=== PATIENT | female | born 1940 | race Asian ===

== ENCOUNTER 2021-10-10 09:08 | Emergency (ER) | payer MEDICARE, OTHER ==
[2021-10-10 09:27] VITALS: BP 136/85; PULSE 71
[2021-10-10] MEDS: Ketorolac 30 MG/ML SDV IM ONE (09:36)
[2021-10-10] MEDS: Ketorolac 30 MG/ML SDV ONE (09:36)
--- NOTE | 2021-10-10 11:41 | EDM.PDOC ---
ED HPI GENERAL MEDICAL PROBLEM - General Chief Complaint: Back Pain or Injury Stated Complaint: W/C INJURED BACK Time Seen by Provider: 10/10/21 09:24 - History of Present Illness INITIAL COMMENTS - FREE TEXT/NARRATIVE: Pt comes in with [employer] worker. She was carrying a tray at work today when she tripped over a pallet. She fell and the tray hit her in the lower Abd. She C/O low back pain on the Rt and lower Abd pain. No head or neck injuries. No nausea or vomiting. - Related Data Allergies Allergy/AdvReac Type Severity Reaction Status Date / Time levofloxacin AdvReac Nausea Verified 10/10/21 09:27 Home Meds: Home Meds atorvaSTATin [Lipitor] 20 mg PO BEDTIME 07/05/14 [History] Losartan/Hydrochlorothiazide [Losartan-HCTZ 100-25 MG] 25 - 100 mg PO DAILY 10/10/19 [History] Past Medical History - Past Health History Medical/Surgical History: Denies Medical/Surgical History Social & Family History - Caffeine Use Caffeine Use: Reports: Coffee Other Caffeine Use: multiple cups daily - Recreational Drug Use Recreational Drug Use: No ED ROS GENERAL - Review of Systems Review Of Systems: Comprehensive ROS is negative, except as noted in HPI. GI/Abdominal: Reports: Abdominal Pain Musculoskeletal: Reports: Back Pain ED EXAM, GENERAL - Physical Exam Exam: See Below Free Text/Narrative:: Pt is awake and alert. She looks much younger than her years. V.S. are reviewed as listed. She has no Abd pain with palpation. She does have low back pain on the Rt involving the paraspinal muscles. Skin is intact. Course - Vital Signs Last Recorded V/S: Last Vital Signs Temp 98 F 10/10/21 09:24 Pulse 71 10/10/21 09:24 Resp 18 10/10/21 09:24 BP 136/85 10/10/21 09:24 Pulse Ox 95 10/10/21 09:24 - Orders/Labs/Meds Orders: Active Orders 24 hr Category Date Time Status Abdomen Pelvis wo Cont [CT] Stat Exams 10/10/21 09:33 Taken Labs: Laboratory Tests 10/10/21 10/10/21 10/10/21 Range/Units 09:45 09:45 09:50 WBC 8.2 (4.0-11.0) K/uL RBC 4.65 (3.80-5.80) M/uL Hgb 13.6 (11.5-16.5) g/dL Hct 40.6 (37.0-47.0) % MCV 87 (76-96) fL MCH 29.2 (27.0-32.0) pg MCHC 33.5 (31.0-35.0) g/dL RDW 14.1 (11.0-16.0) % Plt Count 292 (150-500) K/uL MPV 8.9 (6.0-10.0) fL Neut % (Auto) 75.9 H (45.0-70.0) % Lymph % (Auto) 16.5 L (20.0-40.0) % [place] % (Auto) 6.5 (3.0-10.0) % Eos % (Auto) 1.1 (1.0-5.0) % Baso % (Auto) 0.0 (0.0-0.5) % Neut # (Auto) 6.21 (2.00-7.50) K/uL Lymph # (Auto) 1.35 L (1.50-4.00) K/uL [place] # (Auto) 0.53 (0.20-0.80) K/uL Eos # (Auto) 0.09 (0.04-0.40) K/uL Baso # (Auto) 0.00 L (0.02-0.10) K/uL Sodium 140 (136-145) mmol/L Potassium 3.5 (3.5-5.1) mmol/L Chloride 105 (98-107) mmol/L Carbon Dioxide 26.3 (21.0-32.0) mmol/L Anion Gap 12.2 (5.0-15.0) mmol/L BUN 13 (8-26) mg/dL Creatinine 0.88 (0.55-1.02) mg/dL Est Cr Clr Drug Dosing 39.65 mL/min Estimated GFR (MDRD) > 60 (>60) MLS/MIN BUN/Creatinine Ratio 14.8 (6-25) Glucose 138 H (74-100) mg/dL Calcium 9.2 (8.5-10.1) mg/dL Total Bilirubin 0.6 (0.0-1.0) mg/dL AST 25 (15-37) U/L ALT 30 (12-78) U/L Alkaline Phosphatase 81 (46-116) U/L Total Protein 8.0 (6.4-8.2) g/dL Albumin 3.8 (3.4-5.0) g/dL Globulin 4.2 (2.2-4.2) g/dL Albumin/Globulin Ratio 0.9 (0.8-2.0) Urine Color Yellow Urine Appearance Slightly cloudy (CLEAR) Urine pH 7.5 (5.0-8.0) Ur Specific [place] 1.020 (1.003-1.030) Urine Protein 30 H (NEGATIVE) mg/dL Urine Glucose (UA) Negative (NEGATIVE) mg/dL Urine Ketones Trace H (NEGATIVE) mg/dL Urine Occult Blood Moderate H (NEGATIVE) Urine Nitrite Negative (NEGATIVE) Urine Bilirubin Negative (NEGATIVE) Urine Urobilinogen 0.2 (0.2-1.0) E.U./dL Ur Leukocyte Esterase Negative (NEGATIVE) Urine RBC 50-75 H /HPF Urine WBC 0-5 H /HPF Ur Squamous Epith Cells Few /HPF Meds: Medications Discontinued Medications Generic Name Dose Route Start Last Admin Trade Name Freq PRN Reason Stop Dose Admin Ketorolac Tromethamine 30 mg 10/10/21 09:32 10/10/21 09:36 Ketorolac 30 Mg/Ml Sdv IM 10/10/21 09:33 30 mg ONETIME ONE Administration Ketorolac Tromethamine Confirm 10/10/21 09:42 10/10/21 09:36 Ketorolac 30 Mg/Ml Sdv Administered 10/10/21 09:43 Not Given Dose 30 mg .ROUTE .STK-MED ONE - Re-Assessments/Exams Free Text/Narrative Re-Assessment/Exam: 10/10/21 11:39 She was given Toradol 30 mg IM and this controlled her pain well. She is able to stand and walk smoothly and quickly. Labs show moderate hematuria and cloudy character. She denies any dysuria, but did notice some blood in her urine today. Labs are otherwise ok. She will be discharged home. Light duty activity as tolerated. Aleve for pain - ice frequently to low back for 2-3 days. Follow up in the clinic in 2-3 days if hematuria doesn't resolve. Pt has no further questions. Departure - Departure Time of Disposition: 11:10 Disposition: Home, Self-Care 01 Condition: Good Clinical Impression: Low back pain Qualifiers: Chronicity: acute Back pain laterality: right Sciatica presence: without sciatica Qualified Code(s): M54.50 - Low back pain, unspecified - Discharge Information *PRESCRIPTION DRUG MONITORING PROGRAM REVIEWED*: Yes *COPY OF PRESCRIPTION DRUG MONITORING REPORT IN PATIENT VILMA: Yes Instructions: Acute Back Pain, Adult Referrals: Kali Fairchild MD [Primary Care Provider] - Forms: ED Department Discharge Care Plan Goals: take tyl,ibuprofen as needed for pain. May apply ice. Return as needed. Sepsis Event Note (ED) - Evaluation Sepsis Screening Result: No Definite Risk - Focused Exam Vital Signs: Vital Signs Temp Pulse Resp BP Pulse Ox 10/10/21 09:24 98 F 71 18 136/85 95 - My Orders Last 24 Hours: My Active Orders 10/10/21 09:33 Abdomen Pelvis wo Cont [CT] Stat - Assessment/Plan Last 24 Hours: My Active Orders 10/10/21 09:33 Abdomen Pelvis wo Cont [CT] Stat
--- NOTE | 2021-10-10 14:03 | CT ---
ADDENDUM: The exam is again reviewed. The compression fracture of T10 is again seen. There is also a vertical fracture through the T10 vertebrae on the left that is nondisplaced. Age indeterminate. Date of Service: 10-10-21 Clinical Data: S/P fall-low back & abdominal pain Unenhanced abdomen and pelvic CT: Multi slice acquisition through the abdomen and pelvis without IV or oral contrast was performed. Comparison made to a prior unenhanced abdomen and pelvic CT dated 01 June 2009. There are mild atelectatic changes in both lung bases. The heart size is normal. The liver is normal size. There are numerous low-density lesions within the liver. The largest measures 7.6 cm in diameter axially. They are consistent in appearance with hepatic cysts, however, some are too small to adequately characterize. There is a calcified gallstone in the dependent gallbladder. No pericholecystic fluid. No biliary duct dilatation. The spleen appears normal. The pancreas appears normal. The right and left adrenals appear normal. There are low-density lesions in both kidneys consistent with cysts. No nephrocalcinosis or nephrolithiasis. No hydronephrosis or hydroureter. There is a small amount of fluid within the bladder. The bladder wall appears thickened. This is probably related to nondistention. Cystitis should be considered. The patient is status post hysterectomy. There is diverticulosis of the colon. No evidence of diverticulitis. There is mild mural thickening within the transverse and descending colon. This is most likely related to nondistention. Colitis should at least be considered. The there are atherosclerotic changes throughout the abdominal aorta without aneurysm. No free air. No free fluid. No dilated loops of bowel. No adenopathy. There is a small fat containing umbilical hernia. There is subcutaneous gas in the right flank region most likely related to an injection. There is a partial compression fracture of the T10 vertebrae with approximately 40-50% loss of height anteriorly. It appears to be chronic. 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 No acute fracture or dislocation. There are degenerative changes involving the SI joints. 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 MTDD
== END 2021-10-10 11:20 | disposition home or self-care (01) ==
LOC: LB.ED 09:08
DX: M54.50 Low back pain, unspecified (principal); Z88.1 Allergy status to other antibiotic agents; Z79.899 Other long term (current) drug therapy
CPT/HCPCS: 36415; 74176; 80053; 81001; 85025; 96372; 99284; J1885